=== PATIENT | male | born 1985 | race Caucasian/White ===

== ENCOUNTER → 2017-12-08 | Outpatient (CLI) | payer OTHER ==
[~2017-12-08] MED LIST: CLON0.5T3 PO; FLUV50TA3 PO; IBUP-1428 PO; OXYC1TAB3 PO; PROM25TA PO
[2017-12-08 12:12] LABS: HEMOGLOBIN A1C 5.3 % (4.5-5.6)
[2017-12-08 12:39] LABS: ALBUMIN 4.5 gm/dl (3.4-5.0); ALT/SGPT 28 U/L (12-78); AST/SGOT 25 U/L (15-37); BLOOD UREA NITROGEN 15 mg/dl (7-18); CALCIUM 8.9 mg/dl (8.5-10.1); CARBON DIOXIDE 30 mmol/L (21-32); GLUCOSE 86 mg/dl (70-99); POTASSIUM 3.8 mmol/L (3.5-5.1); SODIUM 139 mmol/L (136-145)
[2017-12-08 12:50] LABS: ALKALINE PHOSPHATASE 66 U/L (45-117); TOTAL PROTEIN 7.8 gm/dl (6.4-8.2)
== END | disposition home or self-care (01) ==
LOC: C.LABBFT 10:25
PROVIDERS: ATTEND Internal Medicine
DX: R63.4 Abnormal weight loss (principal); R68.82 Decreased libido